=== PATIENT | male | born 1955 | race Caucasian/White ===

== ENCOUNTER 2017-09-16 15:43 | Observation (INO) | payer OTHER ==
[~2017-09-16] VITALS: Ht 172.7 cm; Wt 69.6 kg
--- NOTE | 2017-09-16 16:00 | ED CARDIAC/CP/PALPITATIONS ---
History of Present Illness General Chief Complaint: Chest Pain Stated Complaint: CHEST PAIN Source: patient, family, old records Exam Limitations: no limitations Vital Signs & Intake/Output Vital Signs & Intake/Output Vital Signs Date Time Temp Pulse Resp B/P B/P Pulse O2 O2 Flow FiO2 Mean Ox Delivery Rate 09/16 1720 62 18 122/70 98 Room Air 09/16 1604 98 Room Air 09/16 1602 124/74 09/16 1553 98.2 66 15 141/83 98 Room Air Room Air Allergies Coded Allergies: Penicillins (RASH 09/16/17) Reconcile Medications Apixaban (Eliquis) 5 MG TABLET 1 TAB PO BID BLOOD THINNER (Reported) Ascorbic Acid (Vitamin C) (Unknown Strength) TABLET (Unknown Dose) PO DAILY SUPPLEMENT (Reported) Atorvastatin Calcium 80 MG TABLET 1 TAB PO DAILY CHOLESTEROL (Reported) Clopidogrel Bisulfate (Clopidogrel) 75 MG TABLET 1 TAB PO DAILY BLOOD THINNER (Reported) Cyanocobalamin (Vitamin B-12) (Unknown Strength) TABLET (Unknown Dose) PO DAILY SUPPLEMENT (Reported) Metoprolol Tartrate 50 MG TABLET 1 TAB PO BID HEART/BP (Reported) Ubidecarenone (Co Q-10) (Unknown Strength) CAPSULE (Unknown Dose) PO DAILY SUPPLEMENT (Reported) Triage Note: PT TO ED FOR C/C OF FEELING "FLUTTERS" IN HIS CHEST. HX OF AFIB WITH CARDIOVERSION LAST WEEK AND 1 CARDIAC STENT PLACEMENT. PT REPORTS HE WAS DISCHARGED FROM THIS FACILITY WEDNESDAY AND HASN'T REALLY FELT RIGHT SINCE, BUT TODAY WORSENING SOB AND LIGHTHEADEDNESS OCCURED. PT TO ROOM 4 FROM EKG [place]. Triage Nurses Notes Reviewed? yes HPI: Patient had a ALEKSANDAR with cardioversion performed on Wednesday. Patient states that since then he has just been feeling weak and fatigued and has been having intermittent palpitations. Patient denies any chest pain or shortness of breath. There is no Past History Travel History Traveled to [place] past 21 day No Medical History Any Pertinent Medical History? see below for history Cardiovascular: AFIB, myocardial infarction, CARDIAC STENT Surgical History Surgical History: non-contributory Psychosocial History Who do you live with Father What is your primary language East Timorese Tobacco Use: Quit >30 days ago ETOH Use: occasional use Illicit Drug Use: denies illicit drug use Family History Hx Contributory? No Review of Systems Review of Systems Constitutional: Reports: no symptoms. EENTM: Reports: no symptoms. Respiratory: Reports: see HPI, short of breath. Cardiovascular: Reports: see HPI, palpitations. GI: Reports: no symptoms. Genitourinary: Reports: no symptoms. Musculoskeletal: Reports: no symptoms. Skin: Reports: no symptoms. Neurological/Psychological: Reports: no symptoms. Hematologic/Endocrine: Reports: no symptoms. Immunologic/Allergic: Reports: no symptoms. All Other Systems: Reviewed and Negative Physical Exam Physical Exam General Appearance: well developed/nourished, alert, awake, anxious, mild distress Head: atraumatic, normal appearance Eyes: Bilateral: PERRL, EOMI. Ears, Nose, Throat: normal pharynx, normal ENT inspection Neck: normal inspection, supple, full range of motion Respiratory: normal breath sounds, chest non-tender, no respiratory distress, lungs clear Cardiovascular: regular rate/rhythm, normal peripheral pulses Gastrointestinal: normal bowel sounds, soft, non-tender, no organomegaly Back: normal inspection, normal range of motion Extremities: normal inspection, normal capillary refill, normal range of motion, no edema Neurologic/Psych: no motor/sensory deficits, awake, alert, oriented x 3, normal gait, normal mood/affect Skin: intact, normal color, warm/dry Core Measures ACS in differential dx? Yes No ASA d/t ON ELIQUIS AND PLAVIX CVA/TIA Diagnosis No Sepsis Present: No Sepsis Focused Exam Completed? No Progress Differential Diagnosis: AMI, atrial fibrillation, costochondritis, musculoskeletal pain, myocarditis, pericarditis, pneumonia, pneumothorax, pulmonary embolism Plan of Care: Orders Procedure Date/time Status Heart Healthy Diet 09/17 B Active Telemetry/Return To Factory Clerk 09/16 1557 Active TROPONIN LEVEL 09/16 155 Complete PARTIAL THROMBOPLASTIN TIME 09/16 1557 Complete PROTHROMBIN TIME 09/16 1557 Complete D-DIMER 09/16 1557 Complete COMPREHENSIVE METABOLIC PANEL 09/16 1557 Complete CBC WITHOUT DIFFERENTIAL 09/16 155 Complete EKG 09/16 1544 Active Laboratory Tests 09/16/17 1600: Anion Gap 8, Estimated GFR > 60, BUN/Creatinine Ratio 20.0, Glucose 94, Calcium 9.1, Total Bilirubin 1.0, AST 44, ALT 79 H, Alkaline Phosphatase 119, Troponin I 0.14 *H, Total Protein 6.7, Albumin 4.0, Globulin 2.7, Albumin/Globulin Ratio 1.5, PT 14.9 H, INR 1.36 H, APTT 34, D-Dimer High Sensitivty 256 H, CBC w Diff NO MAN DIFF REQ, RBC 4.31 L, MCV 91.9, MCH 31.0, MCHC 33.7, RDW 14.2, MPV 7.6, Gran % 74.9, Lymphocytes % 15.6 L, Monocytes % 8.5, Eosinophils % 0.6, Basophils % 0.4, Absolute Granulocytes 8.6 H, Absolute Lymphocytes 1.8, Absolute Monocytes 1.0 H, Absolute Eosinophils 0.1, Absolute Basophils 0 Diagnostic Imaging: Viewed by Me: Radiology Read. Discussed w/RAD: Radiology Read. CXR Impression: PATIENT: EMELYN DELCID PRESENT AGE: 62 PATIENT ACCOUNT NO: [id number] : 55 LOCATION: [facility] ORDERING PHYSICIAN: Jodee Souza MD SERVICE DATE: 09/16/17 EXAM TYPE: RAD - XRY-PORTABLE CHEST XRAY EXAMINATION: XR PORTABLE CHEST CLINICAL INFORMATION: Chest pain COMPARISON: Chest x-ray 07/15/2016 TECHNIQUE: Portable frontal view of the chest was obtained. 3:55 PM FINDINGS: Lungs are clear. No pulmonary vascular congestion. There is no pleural effusion. The heart size is normal. The cardiac and mediastinal contours are normal. There are multilevel degenerative changes of dorsal spine. There is dextroscoliosis of lower thoracic spine IMPRESSION: No acute abnormality of the chest. DICTATED BY: Sammy Morgan MD DATE /TIME DICTATED:09/16/171617 BRAZER INDUCTION:MATTI DATE/TIME TRANSCRIBED: 09/16/171617 CONFIDENTIAL, DO NOT COPY WITHOUT APPROPRIATE AUTHORIZATION. < Electronically signed in Other Vendor System> SIGNED BY: Sammy Morgan MD [id number] Initial ED EKG: NSR, RBBB, nonspecific ST T wave chg Prior EKG: unchanged Rhythm Strip: normal sinus rhythm Comments: Patient is on Elaquis overdose as well as Plavix. Departure Departure Disposition: STILL A PATIENT Condition: Stable Clinical Impression Primary Impression: ACS (acute coronary syndrome) Referrals: Sergio Qureshi DO (PCP/Family) Departure Forms: Customer Survey General Discharge Information Observation Note Spoke With: Sheree Aragon MD Physician Advisor Notified: LESVIA MAGUIRE,JODEE Hopson Patient In: Non-ED OBS Care Area Rationale for Observation: My rational for observation is as follows [CARDIOLOGY CONSULT AND EVALUATION, SERIAL ENZYLES, TELE MONITORING, DR. SCOTT CONSULTED, REPEAT ECHO]. Critical Care Note Critical Care Note Critical Care Time: mins: (90 MIN)
[2017-09-16 16:11] LABS: ABSOLUTE BASOPHIL COUNT 0 /CUMM (0.0-0.2); ABSOLUTE EOSINOPHIL COUNT 0.1 /CUMM (0.0-0.7); ABSOLUTE GRANULOCYTE CT 8.6 /CUMM (1.4-6.5); ABSOLUTE LYMPH COUNT 1.8 /CUMM (1.2-3.4); BASOPHIL % 0.4 % (0.0-2.0); EOSINOPHIL % 0.6 % (0-5); GRANULOCYTE % 74.9 % (42.2-75.2); HEMATOCRIT 39.7 % (42-52); MEAN CORPUSCULAR HGB CONC 33.7 G/DL (33.0-37.0); MEAN CORPUSCULAR VOLUME 91.9 FL (80.0-94.0); MEAN PLATELET VOLUME 7.6 FL (7.4-10.4); PLATELET COUNT 231 /CUMM (130-400); RBC DISTRIBUTION WIDTH 14.2 % (11.5-14.5); RED BLOOD CELL CT 4.31 /CUMM (4.70-6.10); WHITE BLOOD CELL COUNT 11.5 /CUMM (4.8-10.8)
[2017-09-16 16:20] LABS: PT 14.9 SEC (9.4-12.5); PTT 34 SEC (25-37)
--- NOTE | 2017-09-16 16:23 | RADIOLOGY REPORT ---
EXAMINATION: XR PORTABLE CHEST CLINICAL INFORMATION: Chest pain COMPARISON: Chest x-ray 07/15/2016 TECHNIQUE: Portable frontal view of the chest was obtained. 3:55 PM FINDINGS: Lungs are clear. No pulmonary vascular congestion. There is no pleural effusion. The heart size is normal. The cardiac and mediastinal contours are normal. There are multilevel degenerative changes of dorsal spine. There is dextroscoliosis of lower thoracic spine IMPRESSION: No acute abnormality of the chest.
[2017-09-16] MEDS ORDERED: ATORVASTATIN CA80 M1 PO (16:44)
[2017-09-16] MEDS ORDERED: CLOPIDOGREL75 M1 PO (16:44)
[2017-09-16] MEDS ORDERED: ELIQUIS5 M1 PO (16:44)
[2017-09-16] MEDS ORDERED: METOPROLOL TART50 M1 PO (16:44)
[2017-09-16] MEDS ORDERED: VITAMIN C500 M8 PO (16:45)
[2017-09-16] MEDS ORDERED: VITAMIN B-121000 MC3 PO (16:45)
[2017-09-16] MEDS ORDERED: CO Q-10200 MG PO (16:46)
[2017-09-16 20:26] VITALS: BP 112/64
--- NOTE | 2017-09-16 20:29 | History & Physical ---
Sandie Zavalaluis 09/16/17 2013: General Information and HPI MD Statement: I have seen and personally examined EMELYN DELCID and documented this H&P. The patient is a 62 year old M who presented with a patient stated chief complaint of chest pain. Source of Information: patient History of Present Illness: Patient si a 62 year old male with past medical history of atrial fibrillation status post cardioversion 09/13/17 to normal sinus rythm on Eliquis, myocardial infarction status post stent April 2017 on plavix, hypertension (metoprolol 50BID), COPD (previous smoker), came to ED with worsening "flutters" and dizziness since wednesday. Patient claims he has had a sore throat and glands and felt dizziness with palpitations since wednesday morning while at work, one day after his ALEKSANDAR/Cardioversion. The fluttering would last a timing in between 5 min to [address] Rider wednesday and was told his symptoms may be due to the anesthesia from the procedure. Patient claims that his symptoms worsened on wednesday and he decided to come to the ED afternoon. Patient does not recall any chest pain, diaphoresis, nausea, vomiting or abdominal pain. Patient does claim he has had on going shortness of breath that he attributed to his previous smoking history/COPD. Patient smoked for 30 years 2 packs a day and quit onApril 2017 after his cardiac stent at [facility]. Allergies: Penicillin (Rash) PSH: None Social: Smoker for 30 years 2 packs/day quit April 2017 s/p cardiac stent ROS: +Dizziness, +Headache, +Left neck gland pain Patients PCP is Dr. Sergio Qureshi A/C Technician: Dr. Rider Allergies/Medications Allergies: Coded Allergies: Penicillins (RASH 09/16/17) Home Med list Apixaban (Eliquis) 5 MG TABLET 1 TAB PO BID BLOOD THINNER (Reported) Ascorbic Acid (Vitamin C) (Unknown Strength) TABLET (Unknown Dose) PO DAILY SUPPLEMENT (Reported) Atorvastatin Calcium 80 MG TABLET 1 TAB PO DAILY CHOLESTEROL (Reported) Clopidogrel Bisulfate (Clopidogrel) 75 MG TABLET 1 TAB PO DAILY BLOOD THINNER (Reported) Cyanocobalamin (Vitamin B-12) (Unknown Strength) TABLET (Unknown Dose) PO DAILY SUPPLEMENT (Reported) Metoprolol Tartrate 50 MG TABLET 1 TAB PO BID HEART/BP (Reported) Ubidecarenone (Co Q-10) (Unknown Strength) CAPSULE (Unknown Dose) PO DAILY SUPPLEMENT (Reported) Past History Travel History Traveled to [place] past 21 day No Medical History Blood Transfusion Hx: No Cardiovascular: AFIB, myocardial infarction, CARDIAC STENT Isolation History: Standard Surgical History Surgical History: non-contributory Past Family/Social History Psychosocial History Smoking Status: Former Smoker ETOH Use: occasional use Illicit Drug Use: denies illicit drug use Review of Systems Review of Systems Constitutional: Denies: see HPI. Exam & Diagnostic Data Last 24 Hrs of Vital Signs/I&O Vital Signs Date Time Temp Pulse Resp B/P B/P Pulse O2 O2 Flow FiO2 Mean Ox Delivery Rate 09/17 2007 Room Air 09/16 1913 98.1 65 18 116/74 98 Room Air 09/16 1720 62 18 122/70 98 Room Air 09/16 1604 98 Room Air 09/16 1602 124/74 09/16 1553 98.2 66 15 141/83 98 Room Air Room Air Intake & Output 09/16 1600 09/16 0800 09/16 0000 Intake Total 0 Output Total Balance 0 Intake, Oral 0 Patient 150 lb Weight Weight Reported by Patient Measurement Method Physical Exam General Appearance Alert, Oriented X3, Cooperative, No Acute Distress Skin No Rashes, No Breakdown HEENT PERRLA, EOMI, Mucous Membr. moist/pink Cardiovascular Regular Rate, Normal S1, Normal S2 Lungs Clear to Auscultation, Normal Air Movement Abdomen Normal Bowel Sounds, Soft, No Tenderness Neurological Normal Gait, Normal Speech, Strength at 5/5 X4 Ext, Normal Tone, Cranial Nerves 3-12 NL, Reflexes 2+ Extremities No Clubbing, No Cyanosis, No Edema, Normal Pulses, No Tenderness/ Swelling Vascular Normal Pulses, Pulses Symmetrical Last 24 Hrs of Labs/Eliezer: Laboratory Tests 09/16/17 1600: Anion Gap 8, Estimated GFR > 60, BUN/Creatinine Ratio 20.0, Glucose 94, Serum Osmolality Pending, Calcium 9.1, Total Bilirubin 1.0, AST 44, ALT 79 H, Alkaline Phosphatase 119, Troponin I 0.14 *H, Total Protein 6.7, Albumin 4.0, Globulin 2.7, Albumin/Globulin Ratio 1.5, PT 14.9 H, INR 1.36 H, APTT 34, D- Dimer High Sensitivty 256 H, CBC w Diff NO MAN DIFF REQ, RBC 4.31 L, MCV 91.9, MCH 31.0, MCHC 33.7, RDW 14.2, MPV 7.6, Gran % 74.9, Lymphocytes % 15.6 L, Monocytes % 8.5, Eosinophils % 0.6, Basophils % 0.4, Absolute Granulocytes 8.6 H, Absolute Lymphocytes 1.8, Absolute Monocytes 1.0 H, Absolute Eosinophils 0.1 , Absolute Basophils 0 Diagnostic Data EKG Results NSR, Old RBBB, new T wave inversion lead III Assessment/Plan Assessment: Patient is a 62-year-old male with past medical history significant of atrial fibrillation status post cardioversion performed on 09/13/2017 (on [facility]) , myocardial infarction status post cardiac stent April 2017 came to the ED with increasing palpitations, dizziness and chronic shortness of breath. EKG demonstrated normal sinus rythm with T wave inversion in lead III and an old RBBB. Initial troponin elevated at 0.14. Patient currently asymptomatic on examination. Emergency Department: Vitals: 98.2, 66, 15, 141/83, 98% RA EKG: SR, Old RBBB, non specific T wave change consultant III Troponins: 0.14 D-Dimer: 256 PT: 14.9; INR: 1.36 Labs: WBC: 11.5, Hgb: 13.4, Hct: 39.7, Plt: 231, Na+: 131, Cl: 96, BUN: 12, Cr: 0.6 ALT: 79 CXR: No acute abnormality of the chest ECHO: 09/13/17: Normal left ventricular ejection fraction visually estimated at 65%. Problem List: 1. R/O ACS 2. Atrial Fibrillation S/P Cardioversion 09/13/17 3. Hyponatremia RULE OUT ACS Patient is 62-year-old male with past medical history significant of atrial fibrillation status post cardioversion performed on Wednesday. Patient also has a history of myocardial infarction status post stent. Previous echo demonstrated left ventricular ejection fraction of 65%. Presented to the ED with palpitations and dizziness and an elevated troponin of 0.14. Given history of palpitations lasting between 5 min to 5 hours, it is possible that type 2 demand ischemia is a culprit for patients current condition and elevated cardiac isoenzymes. However, will continue to monitor patients status and rule out ACS. * Admit to telemetry * Serial Troponins/EKGs * Repeat ECHO. * Cardiology consulted * Vitals Q Shift * Continue plavix, statin ATRIAL FIBRILLATION S/P CARDIOVERSION Patient recently cardioverted at [facility] by Dr. Bib Johansen on 2017. Patient tolerated procedure well at that time were no complications. Patient was successfully electrically cardioverted to sinus rhythm from atrial flutter with 50 J. ECG post cardioversion demonstrated sinus rhythm with right bundle branch block. Previous echo demonstrated ejection fraction 65%. * Monitor on telemetry * Repeat ECHO * Cardiology consulted * Vitals Q shift * Continue Eliquis HYPONATREMIA Sodium on admission 131. * Monitor BEP Code Status: Full COde DVT PPx: Heparin SC Diet: Heart Healthy Diet As Ranked By This Provider Problem List: 1. ACS (acute coronary syndrome) Core Measures/Misc (11/01) Acute Coronary Syndrome ACS Diagnosis: Yes Congestive Heart Failure Congestive Heart Failure Diagnosis No Cerebrovascular Accident CVA/TIA Diagnosis: No VTE (View Protocol) VTE Risk Factors Age>40 No Mechanical VTE Prophylaxis d/t N/A MechProphylax Ordered No VTE Pharm Prophylaxis d/t NA PharmProphylax ordered Sepsis (View protocol) Sepsis Present: No If YES complete Sepsis Event Note If YES complete Sepsis Event Note Solange Rivero 09/16/17 2111: Core Measures/Misc (11/01) Sepsis (View protocol) If YES complete Sepsis Event Note If YES complete Sepsis Event Note Resident Review Statement Resident Statement: examined this patient, discussed with sports team marketing intern, agreed with sports team marketing intern Other Findings: Patient is 62-year-old male with past medical history of A. fib status post cardio conversion to sinus rhythm on 09/13/17, history of DC status post PCI and cardiac stent in 05/02 at [place], COPD ex-smoker, came in with the chief complaint of intermittent palpitations. Patient states that after getting the cardioversion on Wednesday, next day at work he noticed that his heart was racing, it was associated with dizziness and shortness of breath. Patient states that his palpitations lasted anywhere from 5 min to 5 hours at max. He spoke with Dr. Rider on Wednesday evening with a concern of dizziness and he was advised to monitor himself closely for any chest pain. Patient denies any chest pain all this time. Patient came in today because his symptoms of were progressively getting worse. Patient also mentions that he has some soreness/swelling in the throat post ALEKSANDAR which is improving. His review of system is negative for any current headache/chest pain/shortness of breath/abdominal discomfort/burning micturition/lower extremity weakness or swelling. Of note, patient states that he smoked for 60 pack years, and quit this year in April 2017 after his heart attack. Labs and vitals as above. Troponin elevated to 0.14. Chest x-ray clear EKG shows normal sinus rhythm with heart rate 58, old left bundle branch block and T-wave inversion in lead III. Problem List: 1. Demand Ischemia 2. Rule out arrythemia, s/p cardioversion for A fib. 3. Hyponatremia Assessment and plan Patient elevated troponins and intermittent palpitations could be due to paroxysmal A. fib, therefore we will monitor him on telemetry floor for any arrhythmias. Patient had a recent PCI done in April 2017 with 1 stent, his elevated troponins could be due to demand ischemia secondary to tachycardia, will trend his troponins and EKG, cardiology consult in a.m. we will restart his home meds including Plavix, statin, apixaban. Hyponatremia is probably due to poor oral intake, however will check serum and urine osmolality and follow up. Tylenol as needed for pain. DVT prophylaxis Eliquis Patient is full code. Margo MAGUIRE,Sheree 09/16/17 2220: Core Measures/Misc (11/01) Sepsis (View protocol) If YES complete Sepsis Event Note If YES complete Sepsis Event Note Attending MD Review Statement Attending Statement Attending MD Statement: examined this patient, discuss w/resident/PA/CASE BRIEFER, agreed w/resident/PA/CASE BRIEFER Attending Assessment/Plan: This is a 62-year-old gentleman with a past medical history significant for atrial fibrillation on anticoagulation and status post cardioversion as of Wednesday. Of note, patient also has a history significant for a myocardial infarction status post PCI with stent placement a few months ago. He presented to the hospital for evaluation of palpitations and dizziness. Incidentally, he was found to have a elevation of his troponin of 0.14. He will be admitted to the hospital to rule out ACS. Currently patient is chest pain-free, hemodynamically stable without any new EKG changes. He had a recent echocardiogram which revealed a preserved ejection fraction. The etiology of his troponin-itis is likely secondary to demand ischemia possibly in the setting of atrial fibrillation with rapid ventricular rate. Plan: Trend cardiac enzymes and repeat EKG Cardiology has been contacted from the emergency department Continue Eliquis, Plavix and statin If patient develops chest pain or has EKG changes/increase in troponin we will contact cardiology and likely arrange for transfer to a facility that has access to a cardiac cath
[2017-09-17 06:37] VITALS: BP 104/56; BP 132/78
--- NOTE | 2017-09-17 07:39 | PN- Housestaff ---
Darren Damian 09/17/17 0739: Subjective Follow-up For: atrial fibrillation Complaints: pain scale (0-10) (palpitations) Tele-Events Since Last Visit: rosalia Subjective: Patient is a 62-year-old male with a past medical history of atrial fibrillation status post cardioversion on 08/27/2017 converted to sinus rhythm and on Eliquis, myocardial infarction status post stent on April 2017 on Plavix, hypertension on metoprolol 50 mg twice daily came to ED with palpitations and dizziness since Wednesday.The palpitations would last a timing in between 5 min to [address] Rider wednesday and was told his symptoms may be due to the anesthesia from the procedure. Patient claims that his symptoms worsened on wednesday and he decided to come to the ED afternoon. Patient does not recall any chest pain, diaphoresis, nausea, vomiting or abdominal pain. Patient does claim he has had on going shortness of breath that he attributed to his previous smoking history/COPD. Patient smoked for 30 years 2 packs a day and quit onApril 2017 after his cardiac stent at [facility]. Overnight the patient does not have any new symptoms. Review of Systems Constitutional: Reports: see HPI. Objective Last 24 Hrs of Vital Signs/I&O Vital Signs Date Time Temp Pulse Resp B/P B/P Pulse O2 O2 Flow FiO2 Mean Ox Delivery Rate 09/17 0933 81 128/62 09/17 0800 97 Room Air 09/17 0637 99.1 65 18 132/78 97 Room Air 09/16 2026 98.3 58 20 112/64 98 Room Air 09/17 2007 Room Air 09/16 1913 98.1 65 18 116/74 98 Room Air 09/16 1720 62 18 122/70 98 Room Air 09/16 1604 98 Room Air 09/16 1602 124/74 09/16 1553 98.2 66 15 141/83 98 Room Air Room Air Intake & Output 09/17 1600 09/17 0800 09/17 0000 Intake Total Output Total 150 Balance -150 Output, Urine 150 Patient 153 lb Weight Physical Exam General Appearance: Alert, Oriented X3, Cooperative, No Acute Distress Cardiovascular: Regular Rate (tachycardia), No Murmurs Lungs: Clear to Auscultation, Normal Air Movement Abdomen: Normal Bowel Sounds, Soft, No Tenderness, No Hepatospenomegaly, No Masses Neurological: Normal Speech, Strength at 5/5 X4 Ext, Normal Tone, Sensation Intact Extremities: No Clubbing, No Cyanosis, No Edema, Normal Pulses, No Tenderness/ Swelling Current Medications: Current Medications Sig/Joby Start time Last Medication Dose Route Stop Time Status Admin Acetaminophen 650 MG Q8P PRN 09/16 2145 AC PO Acetaminophen 650 MG ONCE ONE 09/16 1800 DC 09/16 PO 09/16 1801 1752 Acetaminophen 0 .STK-MED ONE 09/16 1750 DC PO Apixaban 5 MG BID 09/16 2100 AC 09/17 PO 08 Atorvastatin Calcium 80 MG 1700 09/16 205 AC 09/16 PO 2316 Clopidogrel Bisulfate 75 MG DAILY 09/17 09 AC 09/17 PO 08 Metoprolol Tartrate 50 MG BID 09/17 09 AC 09/17 PO 0933 Last 24 Hrs of Lab/Eliezer Results Last 24 Hrs of Labs/Mics: Laboratory Tests 09/17/17 1005: Troponin I Pending 09/17/17 0605: Anion Gap 7, Estimated GFR > 60, BUN/Creatinine Ratio 13.3, Troponin I 0.15 *H, CBC w Diff NO MAN DIFF REQ, RBC 4.30 L, MCV 92.4, MCH 31.0, MCHC 33.5, RDW 13.8 , MPV 8.0, Gran % 75.6 H, Lymphocytes % 14.9 L, Monocytes % 8.7, Eosinophils % 0.4, Basophils % 0.4, Absolute Granulocytes 7.7 H, Absolute Lymphocytes 1.5, Absolute Monocytes 0.9 H, Absolute Eosinophils 0, Absolute Basophils 0 09/16/17 2215: Troponin I 0.13 *H 09/16/17 1600: Anion Gap 8, Estimated GFR > 60, BUN/Creatinine Ratio 20.0, Glucose 94, Serum Osmolality 278 L, Calcium 9.1, Total Bilirubin 1.0, AST 44, ALT 79 H, Alkaline Phosphatase 119, Troponin I 0.14 *H, Total Protein 6.7, Albumin 4.0, Globulin 2.7, Albumin/Globulin Ratio 1.5, PT 14.9 H, INR 1.36 H, APTT 34, D-Dimer High Sensitivty 256 H, CBC w Diff NO MAN DIFF REQ, RBC 4.31 L, MCV 91.9, MCH 31.0, MCHC 33.7, RDW 14.2, MPV 7.6, Gran % 74.9, Lymphocytes % 15.6 L, Monocytes % 8.5, Eosinophils % 0.6, Basophils % 0.4, Absolute Granulocytes 8.6 H, Absolute Lymphocytes 1.8, Absolute Monocytes 1.0 H, Absolute Eosinophils 0.1, Absolute Basophils 0 Assessment/Plan Assessment: Patient is 62-year-old male with past medical history significant of atrial fibrillation status post cardioversion performed on Wednesday. Patient also has a history of myocardial infarction status post stent on april 2017. Previous echo demonstrated left ventricular ejection fraction of 65%. Presented to the ED with palpitations and dizziness and an elevated troponin of 0.14, 0.15. Given history of palpitations lasting between 5 min to 5 hours, it is possible that type 2 demand ischemia is a culprit for patients current condition and elevated cardiac isoenzymes. However, will continue to monitor patients status and rule out ACS. rule out ACS- - echocardiogram Cardiology consult Vitals Continue Plavix, statin Atrial fibrillation- Continue Eliquis monitor on telemetry Cardiology consulted Monitor vitals Problem List: 1. Atrial fibrillation 2. ACS (acute coronary syndrome) Pain Ratin Pain Location: chest Pain Goal: Remain pain free Pain Plan: tyelenol Tomorrow's Labs & Rationales: none Deborah Mcdowell MD 09/17/17 1314: Attending MD Review Statement Attending Statement Attending MD Statement: examined this patient, discuss w/resident/PA/BUSINESS MANAGER, agreed w/resident/PA/BUSINESS MANAGER, discussed with family, reviewed EMR data (avail), discussed with nursing, discussed with case mgmt, reviewed images Attending Assessment/Plan: 62-year-old male past medical history of coronary artery disease, recent [id number] with a fluttering sensation and uncomfortable feeling in his chest and a borderline troponin. Patient had a repeat echocardiogram done and that was normal. Dr. Orozco evaluated the patient and he is stable for discharge with close outpatient follow-up. He is remained in sinus rhythm throughout.
[2017-09-17 08:06] LABS: ABSOLUTE BASOPHIL COUNT 0 /CUMM (0.0-0.2); ABSOLUTE EOSINOPHIL COUNT 0 /CUMM (0.0-0.7); ABSOLUTE GRANULOCYTE CT 7.7 /CUMM (1.4-6.5); ABSOLUTE LYMPH COUNT 1.5 /CUMM (1.2-3.4); ABSOLUTE MONOCYTE COUNT 0.9 /CUMM (0.10-0.60); BASOPHIL % 0.4 % (0.0-2.0); EOSINOPHIL % 0.4 % (0-5); GRANULOCYTE % 75.6 % (42.2-75.2); HEMATOCRIT 39.8 % (42-52); MEAN CORPUSCULAR HGB CONC 33.5 G/DL (33.0-37.0); MEAN CORPUSCULAR VOLUME 92.4 FL (80.0-94.0); PLATELET COUNT 228 /CUMM (130-400); RBC DISTRIBUTION WIDTH 13.8 % (11.5-14.5); WHITE BLOOD CELL COUNT 10.2 /CUMM (4.8-10.8)
[2017-09-17 09:33] VITALS: BP 128/62
--- NOTE | 2017-09-17 10:50 | Patient Discharge Instructions ---
Discharge Instructions General Discharge Information You were seen/treated for: Palpitation. Special Instructions: Please follow-up with your PCP within a week of discharge Please follow-up with reactor technician within a week of discharge. Diet Recommended Diet: Heart Healthy Acute Coronary Syndrome Inclusion Criteria At DC or during hospital stay patient has or had the following: ACS DIAGNOSIS No Discharge Core Measures Meds if any: Prescribed or Continued at Discharge Meds if any: NOT Prescribed or Continued at Discharge Congestive Heart Failure Inclusion Criteria At DC or during hospital stay patient has or had the following: CHF DIAGNOSIS No Discharge Core Measures Meds if any: Prescribed or Continued at Discharge Meds if any: NOT Prescribed or Continued at Discharge Cerebrovascular accident Inclusion Criteria At DC or during hospital stay patient has or had the following: CVA/TIA Diagnosis No Discharge Core Measures Meds if any: Prescribed or Continued at Discharge Meds if any: NOT Prescribed or Continued at Discharge Venous thromboembolism Inclusion Criteria VTE Diagnosis No VTE Type NONE VTE Confirmed by (Test) NONE Discharge Core Measures - Per Current guidelines, there needs to be overlap - treatment for the first 5 days of Warfarin therapy. - If discharged on Warfarin prior to 5 days of - overlap therapy, the patient will need to be - assessed for post discharge needs including - *Post discharge parental anticoagulation - *Warfarin and/or parental anticoagulation education - *Follow up date to check INR post discharge Meds if any: Prescribed or Continued at Discharge Note: Overlap Therapy is Warfarin and Anticoagulant Meds if any: NOT Prescribed or Continued at Discharge
--- NOTE | 2017-09-17 11:01 | ECHOCARDIOGRAM REPORT ---
EMELYN DELCID Age: 62 : 1955 Gender: M Exam Date: 09/17/2017 10:16 Exam Location: [address] Ht (in): 68 Wt (lb): 153 BSA: 1.83 BP: 128 / 62 Ordering Physician: Darren Damian MD Referring Physician: Darren Damian MD Technologist: Jeffrey Salcido [facility] Room Number: 180-2 Indications: Persistent atrial fibrillation Rhythm: Sinus Technical Quality: Good FINDINGS Left Ventricle Normal global left ventricular size, wall thickness, systolic function with no obvious regional wall motion abnormalities. Left ventricular ejection fraction is estimated at > 55 %. Normal left ventricular diastolic filling pattern for age. Right Ventricle Normal right ventricular size and function. Right Atrium Mild right atrial dilatation. Left Atrium Mild left atrial dilatation. Mitral Valve Trace mitral regurgitation. Structurally normal mitral valve. Aortic Valve Trileaflet aortic valve. Trace to mild aortic regurgitation. Tricuspid Valve Structurally normal tricuspid valve. Mild tricuspid regurgitation. Unable to estimate the right ventricular systolic pressure. Pulmonic Valve Pulmonic valve not well visualized, grossly normal. Pericardium No pericardial effusion. Great Vessels Normal size aortic root. CONCLUSIONS Normal global left ventricular size, wall thickness, systolic function with no obvious regional wall motion abnormalities. Left ventricular ejection fraction is estimated at > 55 %. Normal left ventricular diastolic filling pattern for age. Normal right ventricular size and function. Mild right atrial dilatation. Mild left atrial dilatation. No pericardial effusion. Garcia Orozco M.D. (Electronically Signed) Final Date: 17 September 2017 10:55 MEASUREMENTS (Male / Female) Normal Values 2D ECHO LV Diastolic Diameter PLAX 4.9 cm 4.2 - 5.9 / 3.9 - 5.3 cm LV Systolic Diameter PLAX 2.8 cm 2.1 - 4.0 cm LV Fractional Shortening PLAX 42.9 % 25 - 46 % LV Ejection Fraction 2D Teich 73.8 % IVS Diastolic Thickness 1.0 cm LVPW Diastolic Thickness 1.0 cm LV Relative Wall Thickness 0.4 RV Internal Dim ED PLAX 2.9 cm 1.9 - 3.8 cm LVOT Diameter 2.0 cm Aortic Root Diameter 3.0 cm LA Systolic Diameter LX 3.3 cm 3.0 - 4.0 / 2.7 - 3.8 cm LA Volume 49.0 cm 18 - 58 / 22 - 52 cm Ascending Aorta Diameter 3.4 cm DOPPLER AV Peak Velocity 154.0 cm/s AV Peak Gradient 9.5 mmHg AV Mean Velocity 103.0 cm/s AV Mean Gradient 5.0 mmHg AV Velocity Time Integral 33.3 cm AI Deceleration Beauregard 242.0 cm/s AI Peak Velocity 438.0 cm/s AI Pressure Half Time 531.0 ms AI Peak Gradient 76.7 mmHg LVOT Peak Velocity 107.0 cm/s LVOT Peak Gradient 4.6 mmHg LVOT Mean Velocity 64.5 cm/s LVOT Mean Gradient 2.0 mmHg LVOT Velocity Time Integral 20.8 cm LVOT Stroke Volume 65.3 cm AV Area Cont Eq vti 2.0 cm AV Area Cont Eq pk 2.2 cm MV Peak Velocity 141.0 cm/s MV Peak Gradient 8.0 mmHg MV Mean Velocity 67.2 cm/s MV Mean Gradient 2.0 mmHg Mitral E Point Velocity 124.0 cm/s Mitral A Point Velocity 64.7 cm/s Mitral E to A Ratio 1.9 MV PHT Velocity 143.0 cm/s MV Deceleration Beauregard 464.0 cm/s MV Pressure Half Time 92.5 ms MV Area PHT 2.4 cm MV Deceleration Time 236.0 ms TR Peak Velocity 327.0 cm/s TR Peak Gradient 42.8 mmHg Right Atrial Pressure 10.0 mmHg Pulmonary Artery Systolic Pressure 52.8 mmHg Right Ventricular Systolic Pressure 52.8 mmHg PV Peak Velocity 110.0 cm/s PV Peak Gradient 4.8 mmHg PV Mean Velocity 75.7 cm/s PV Mean Gradient 3.0 mmHg PV Velocity Time Integral 23.2 cm LV E' Lateral Velocity 10.7 cm/s Mitral E to LV E' Lateral Ratio 11.6 LV E' Septal Velocity 10.2 cm/s Mitral E to LV E' Septal Ratio 12.2
--- NOTE | 2017-09-17 12:06 | Cons- Cardiology ---
General Information and HPI Consulting Request Date of Consult: 09/17/17 Requested By: July MAGUIRE,Deborah Sullivan Reason for Consult: Palpitations Source of Information: patient, old records History of Present Illness: This is a 62-year-old male with a past medical history of COPD, nicotine dependence in remission, coronary artery disease with myocardial infarction and drug-eluting stent to the left circumflex artery in May 2017, and recent onset atrial fibrillation/atrial flutter status post successful ALEKSANDAR/cardioversion 5 days ago (09/13/17) who presents to [facility] with a chief complaint of intermittent low-level palpitations/lightheadedness over the past week; not associated with any shortness of breath, chest pain, bleeding, or syncope. Denies any fever or cough. Denies any symptoms similar to his cardiac symptoms during his previous myocardial infarction. Reports compliance with his medication regimen. Did have a mild sore throat. Denies any headache, slurring of speech, visual changes, or focal weakness. Allergies/Medications Allergies: Coded Allergies: Penicillins (RASH 09/16/17) Home Med List: Apixaban (Eliquis) 5 MG TABLET 1 TAB PO BID BLOOD THINNER (Reported) Ascorbic Acid (Vitamin C) (Unknown Strength) TABLET (Unknown Dose) PO DAILY SUPPLEMENT (Reported) Atorvastatin Calcium 80 MG TABLET 1 TAB PO DAILY CHOLESTEROL (Reported) Clopidogrel Bisulfate (Clopidogrel) 75 MG TABLET 1 TAB PO DAILY BLOOD THINNER (Reported) Cyanocobalamin (Vitamin B-12) (Unknown Strength) TABLET (Unknown Dose) PO DAILY SUPPLEMENT (Reported) Metoprolol Tartrate 50 MG TABLET 1 TAB PO BID HEART/BP (Reported) Ubidecarenone (Co Q-10) (Unknown Strength) CAPSULE (Unknown Dose) PO DAILY SUPPLEMENT (Reported) Current Medications: Current Medications Sig/Joby Start time Last Medication Dose Route Stop Time Status Admin Acetaminophen 650 MG Q8P PRN 09/16 2145 AC PO Acetaminophen 650 MG ONCE ONE 09/16 1800 DC 09/16 PO 09/16 1801 1752 Acetaminophen 0 .STK-MED ONE 09/16 1750 DC PO Apixaban 5 MG BID 09/16 2100 AC 09/17 PO 0808 Atorvastatin Calcium 80 MG 1700 09/16 2059 AC 09/16 PO 2316 Clopidogrel Bisulfate 75 MG DAILY 09/17 0900 AC 09/17 PO 0808 Metoprolol Tartrate 50 MG BID 09/17 899 AC 09/17 PO 0933 Review of Systems Review of Systems: Review of systems as per HPI. The remainder of a 10 point review of systems was reviewed and was otherwise negative. Past History Travel History Traveled to [place] past 21 day No Medical History Blood Transfusion Hx: No Cardiovascular: AFIB, myocardial infarction, CARDIAC STENT Surgical History Surgical History: non-contributory Psychosocial History Smoking Status: Former Smoker ETOH Use: occasional use Illicit Drug Use: denies illicit drug use Exam & Diagnostic Data Vital Signs and I&O Vital Signs Date Time Temp Pulse Resp B/P B/P Pulse O2 O2 Flow FiO2 Mean Ox Delivery Rate 09/17 0933 81 128/62 09/17 08 97 Room Air 09/17 0637 99.1 65 18 132/78 97 Room Air 09/16 2026 98.3 58 20 112/64 98 Room Air 09/16 2008 Room Air 09/16 1913 98.1 65 18 116/74 98 Room Air 09/16 1720 62 18 122/70 98 Room Air 09/16 1604 98 Room Air 09/16 1602 124/74 09/16 1553 98.2 66 15 141/83 98 Room Air Room Air Intake & Output 09/17 1600 09/17 0000 09/16 1600 09/16 0800 09/16 0000 Intake Total 0 Output Total 150 Balance -150 0 Intake, Oral 0 Output, Urine 150 Patient 153 lb 150 lb Weight Weight Reported by Patient Measurement Method Physical Exam: General: no apparent distress. Alert. Eyes: No obvious scleral icterus. HEENT: No jugular venous distention or abnormal jugular venous pulsations. Cardiovascular: Normal intensity S1/S2. PMI not grossly displaced. Respiratory: Lungs clear to auscultation bilaterally. Abdomen: Soft, nontender with no guarding or rebound tenderness. Musculoskeletal: No clubbing or cyanosis noted Skin: warm Neurologic: No gross focal deficits noted. Lymph: No gross lymphadenopathy. Labs/Eliezer Results: Laboratory Tests 09/17 09/17 09/16 1005 0605 2215 Chemistry Sodium (137 - 145 mmol/L) 134 L Potassium (3.5 - 5.1 mmol/L) 3.9 Chloride (98 - 107 mmol/L) 99 Carbon Dioxide (22 - 30 mmol/L) 28 Anion Gap (5 - 16) 7 BUN (9 - 20 mg/dL) 8 L Creatinine (0.7 - 1.2 mg/dL) 0.6 L Estimated GFR (>60 ml/min) > 60 BUN/Creatinine Ratio (7 - 25 %) 13.3 Troponin I (<0.11 ng/ml) Pending 0.15 *H 0.13 *H Hematology CBC w Diff NO MAN DIFF REQ WBC (4.8 - 10.8 /CUMM) 10.2 RBC (4.70 - 6.10 /CUMM) 4.30 L Hgb (14.0 - 18.0 G/DL) 13.3 L Hct (42 - 52 %) 39.8 L MCV (80.0 - 94.0 FL) 92.4 MCH (27.0 - 31.0 PG) 31.0 MCHC (33.0 - 37.0 G/DL) 33.5 RDW (11.5 - 14.5 %) 13.8 Plt Count (130 - 400 /CUMM) 228 MPV (7.4 - 10.4 FL) 8.0 Gran % (42.2 - 75.2 %) 75.6 H Lymphocytes % (20.5 - 51.1 %) 14.9 L Monocytes % (1.7 - 9.3 %) 8.7 Eosinophils % (0 - 5 %) 0.4 Basophils % (0.0 - 2.0 %) 0.4 Absolute Granulocytes (1.4 - 6.5 /CUMM) 7.7 H Absolute Lymphocytes (1.2 - 3.4 /CUMM) 1.5 Absolute Monocytes (0.10 - 0.60 /CUMM) 0.9 H Absolute Eosinophils (0.0 - 0.7 /CUMM) 0 Absolute Basophils (0.0 - 0.2 /CUMM) 0 08/02 1600 Chemistry Sodium (137 - 145 mmol/L) 131 L Potassium (3.5 - 5.1 mmol/L) 3.9 Chloride (98 - 107 mmol/L) 96 L Carbon Dioxide (22 - 30 mmol/L) 27 Anion Gap (5 - 16) 8 BUN (9 - 20 mg/dL) 12 Creatinine (0.7 - 1.2 mg/dL) 0.6 L Estimated GFR (>60 ml/min) > 60 BUN/Creatinine Ratio (7 - 25 %) 20.0 Glucose (65 - 99 mg/dL) 94 Serum Osmolality (285 - 295 MOSM/KG) 278 L Calcium (8.4 - 10.2 mg/dL) 9.1 Total Bilirubin (0.2 - 1.3 mg/dL) 1.0 AST (17 - 59 U/L) 44 ALT (21 - 72 U/L) 79 H Alkaline Phosphatase (< 127 U/L) 119 Troponin I (<0.11 ng/ml) 0.14 *H Total Protein (6.3 - 8.2 g/dL) 6.7 Albumin (3.5 - 5.0 g/dL) 4.0 Globulin (1.9 - 4.2 gm/dL) 2.7 Albumin/Globulin Ratio (1.1 - 2.2 %) 1.5 Coagulation PT (9.4 - 12.5 SEC) 14.9 H INR (0.90 - 1.17) 1.36 H APTT (25 - 37 SEC) 34 D-Dimer High Sensitivty (0 - 243 ng/ml) 256 H Hematology CBC w Diff NO MAN DIFF REQ WBC (4.8 - 10.8 /CUMM) 11.5 H RBC (4.70 - 6.10 /CUMM) 4.31 L Hgb (14.0 - 18.0 G/DL) 13.4 L Hct (42 - 52 %) 39.7 L MCV (80.0 - 94.0 FL) 91.9 MCH (27.0 - 31.0 PG) 31.0 MCHC (33.0 - 37.0 G/DL) 33.7 RDW (11.5 - 14.5 %) 14.2 Plt Count (130 - 400 /CUMM) 231 MPV (7.4 - 10.4 FL) 7.6 Gran % (42.2 - 75.2 %) 74.9 Lymphocytes % (20.5 - 51.1 %) 15.6 L Monocytes % (1.7 - 9.3 %) 8.5 Eosinophils % (0 - 5 %) 0.6 Basophils % (0.0 - 2.0 %) 0.4 Absolute Granulocytes (1.4 - 6.5 /CUMM) 8.6 H Absolute Lymphocytes (1.2 - 3.4 /CUMM) 1.8 Absolute Monocytes (0.10 - 0.60 /CUMM) 1.0 H Absolute Eosinophils (0.0 - 0.7 /CUMM) 0.1 Absolute Basophils (0.0 - 0.2 /CUMM) 0 Diagnostic Data EKG Results Tracing was personally reviewed and shows sinus rhythm at 68 bpm with right bundle branch block CXR Results No acute abnormality of the chest. Other Results Telemetry tracings were personally reviewed and shows sinus rhythm Echocardiogram Normal global left ventricular size, wall thickness, systolic function with no obvious regional wall motion abnormalities. Left ventricular ejection fraction is estimated at > 55 %. Normal left ventricular diastolic filling pattern for age. Normal right ventricular size and function. Mild right atrial dilatation. Mild left atrial dilatation. No pericardial effusion. Garcia Orozco M.D. (Electronically Signed) Final Date: 17 September 2017 10:55 Assessment/Plan Assessment/Plan 1. Low-level palpitations without evidence of recurrent atrial fibrillation at this time; patient did undergo a successful ALEKSANDAR/cardioversion 5 days ago () 2. Minimal troponin elevation with flat troponin curve and no evidence of regional wall motion and normality on echocardiogram today; not consistent with acute coronary syndrome 3. COPD with nicotine dependence in remission 4. Coronary artery disease with myocardial infarction and drug-eluting stent to the left circumflex artery in May 2017 Patient remains hemodynamically stable and remains in sinus rhythm. His chest x- ray is normal with no evidence of aspiration pneumonitis status post recent ALEKSANDAR/ cardioversion. Repeat echocardiogram today as above shows no evidence of wall motion abnormality and he reports no symptoms similar to his symptoms during his previous myocardial infarction. The minimal troponin elevation with flat troponin curve is not suggestive of acute myocardial infarction. He did have a recent nuclear stress test in our office that showed no evidence of ischemia by nuclear imaging. He will continue to require outpatient monitoring for recurrent atrial fibrillation. His outpatient cardiac regimen should be continued including uninterrupted anticoagulation and antiplatelet therapy. He is instructed to return to the emergency room via 911 with any new or recurring symptoms and if he is otherwise feeling well he should follow-up in our office within 1 week. Pb Orozco MD [facility] Consult Acknowledgment - Thank you for your consult request.
== END 2017-09-17 12:25 ==
LOC: ERH 15:43 → ERHI 18:17 → ENRESERV 18:48 → ENTRNSPT 19:28 → 1NO 19:46 → EDTRNSPTSTS 19:50 → CMPTRNSPT 19:57 → 1NO 20:45 → ENPENDDIS 09-17 11:49 → 1NO 09-17 12:25
PROVIDERS: Emergency Medicine; Internal Medicine
DX: I24.9 Acute ischemic heart disease, unspecified (principal); I48.91 Unspecified atrial fibrillation; I10 Essential (primary) hypertension; J44.9 Chronic obstructive pulmonary disease, unspecified; E87.1 Hypo-osmolality and hyponatremia; Z87.891 Personal history of nicotine dependence; Z79.01 Long term (current) use of anticoagulants; I25.2 Old myocardial infarction; Z95.5 Presence of coronary angioplasty implant and graft
CPT/HCPCS: 6020; 36592; 71045; 82436; 93005; 93010; 93306; 99291; G0378